=== PATIENT | female | born 1965 | race Caucasian/White ===

== ENCOUNTER 2021-03-16 12:39 | Outpatient (CLI) | payer BC | END 2021-03-16 12:40 | disposition home or self-care (01) | LOC: CSHMAMMO 12:39 | PROVIDERS: ATTEND Obstetrics & Gynecology | DX: C50.411 Malignant neoplasm of upper-outer quadrant of right female breast (principal); R59.0 Localized enlarged lymph nodes | CPT/HCPCS: 19083; 77066; 88305; 88341; 88342; G0279 ==

== ENCOUNTER 2022-04-12 08:37 | Outpatient (CLI) | payer BC | END 2022-04-12 08:38 | disposition home or self-care (01) | LOC: CSHMAMMO 08:37 | PROVIDERS: ATTEND Internal Medicine Hematology & Oncology | DX: C50.911 Malignant neoplasm of unspecified site of right female breast (principal); R30.0 Dysuria | CPT/HCPCS: 77066; G0279 ==

== ENCOUNTER 2024-04-16 13:18 | Outpatient (CLI) | payer BC | END 2024-04-16 13:19 | disposition home or self-care (01) | LOC: CSHMAMMO 13:18 | PROVIDERS: ATTEND Specialist | DX: Z12.31 Encounter for screening mammogram for malignant neoplasm of breast (principal); Z85.3 Personal history of malignant neoplasm of breast; Z98.890 Other specified postprocedural states | CPT/HCPCS: 77063; 77067 ==